=== PATIENT | male | born 1980 | race Caucasian/White ===

== ENCOUNTER → 2017-09-02 07:53 | Outpatient (CLI) | payer BC, SELFPAY ==
[2017-09-02 08:27] LABS: Absolute Lymphocyte Count 1.25 X10^3/ul (0.83-4.51); Absolute Neutrophil Count 3.2 X10^3/uL (2.0-7.7); Basophil# 0.02 X10^3/uL; Basophil% 0.4 % (0-1); Eosinophil# 0.16 X10^3/uL; Hematocrit 44.8 % (40-54); Hemoglobin 15.5 g/dl (13.0-16.5); Lymphocyte # 1.25 X10^3/ul (4.0); Lymphocyte % 23.6 % (19-41); Mean Corp Hgb Conc 34.6 g/gl (32-36); Mean Corpuscular Hgb 28.9 pg (27.0-32.0); Mean Corpuscular Volume 83.4 fL (80-94); Mean Platelet Vol. 10.6 fl (6.2-12.0); Monocyte# 0.63 X10^3/uL; Monocyte% 11.9 % (0-10); Neutrophil # 3.21 X10^3/uL (2.7-7.7); Neutrophil % 60.7 % (47-70); POSITIVE COUNT NO; POSITIVE DIFFERENTIAL NO; POSITIVE MORPHOLOGY NO; Platelet Count 226 K/mm3 (150-450); RBC Distribution Width CV 12.6 % (11.6-14.6); RBC Distribution Width SD 38.2 fl (35.1-43.9); Red Blood Count 5.37 M/mm3 (4.6-6.2); White Blood Count 5.3 K/mm3 (4.4-11.0)
[2017-09-02 08:57] LABS: Anion Gap 6 (5-15); BUN 18 mg/dL (7-18); BUN/Creat Ratio 15.7 RATIO (10-20); Calcium,Total 8.6 mg/dL (8.5-10.1); Chloride 105 mmol/L (98-107); Cholesterol 139 mg/dL (200); Creatinine, Serum 1.15 mg/dL (0.70-1.30); EST Glomerular Filtration Rate 76 mL/min (>60); Est Glom Filt Rate - Afr Amer 92 mL/min (>60); Glucose 110 mg/dL (74-106); High Density Lipoprotein 37 mg/dL; Potassium 4.2 mmol/L (3.5-5.1); Sodium Level 137 mmol/L (136-145); Triglycerides 142 mg/dL; Very Low Density Lipoprotein 28 mg/dL (5-40)
== END ==
PROVIDERS: Family Provider Family Medicine; PCP Family Medicine; Visit Provider Family Medicine
DX: I10 Essential (primary) hypertension (principal); E78.00 Pure hypercholesterolemia, unspecified
CPT/HCPCS: 36415; 80048; 80061; 85025

== ENCOUNTER → 2020-05-28 10:10 | Outpatient (CLI) | payer BC, SELFPAY ==
[2020-05-28 12:51] LABS: ALB/GLOB Ratio 1.3 RATIO (0.9-2.4); AST(SGOT) 14 U/L (15-37); Alanine Aminotransfer ALT/SGPT 34 U/L (16-61); Alkaline Phosphatase 56 U/L (45-117); Anion Gap 5 (5-15); BUN 18 mg/dL (7-18); BUN/Creat Ratio 16.4 RATIO (10-20); Calcium,Total 8.9 mg/dL (8.5-10.1); Chloride 105 mmol/L (98-107); Cholesterol 162 mg/dL (200); EST Glomerular Filtration Rate 79 mL/min (>60); Est Glom Filt Rate - Afr Amer 95 mL/min (>60); Glucose 102 mg/dL (74-106); High Density Lipoprotein 42 mg/dL; Potassium 4.1 mmol/L (3.5-5.1); Sodium Level 138 mmol/L (136-145); Triglycerides 124 mg/dL; Very Low Density Lipoprotein 25 mg/dL (5-40)
[2020-05-28 12:53] LABS: Hemoglobin A1c 5.2 % (3.8-5.6)
== END ==
PROVIDERS: PCP Family Medicine; Visit Provider Family Medicine
DX: Z00.00 Encounter for general adult medical examination without abnormal findings (principal); R73.01 Impaired fasting glucose
CPT/HCPCS: 36415; 80053; 80061; 83036

== ENCOUNTER 2020-07-08 15:44 | Outpatient (RCR) | payer BC, SELFPAY ==
[2020-07-09 13:41] VITALS: BMI 41.5
== END 2020-09-08 23:59 ==
LOC: IMMUN 15:44
PROVIDERS: PCP Family Medicine; Referring Provider Family Medicine; Visit Provider Family Medicine
DX: Z23 Encounter for immunization (principal)
CPT/HCPCS: 0001A; 0002A; 91300

== ENCOUNTER 2020-09-04 09:54 | Day surgery (SDC) | payer BC, SELFPAY ==
--- NOTE | 2020-09-04 | IMM_PTH ---
PATIENT: DEVORAH PRINCE LOC: [place] U#:[id number] AGE/SX: 40/M ROOM: RE09/04/[address]: Dr. Estevan Bagley MD : 1980 BED: DIS: 09/04/2020 SPEC #: [id number] RECD: 09/07/20 12:19 STATUS: DANIELLE REQ #: [id number] CHARLY: 09/04/20 00:[address]: Estevan Bagley DEPT: IMMUNOHISTOCHEMISTRY RECD BY: Mckenna Horn ENTERED: 09/07/20 12:21 SP TYPE: IMMUNO OTHR DR: Dr. Dada Anderson, DO Tissues: Forearm, NOS Procedures: Synapto (add) SMA (add) CALPONIN-1 (add) CD31 (add) CD34 (add) CD45 (add) CD56 (add) CHROMO (add) TIERRA (add) P53 (add) Vimentin (add) FACTOR VIII (add) NEUROFIL (add) Pankeratin (initial) S-100 (add) PHYSICIAN & INSTITUTION [address] [address] SPECIMEN INFORMATION: Tissue Source: Right dorsal radial mid forearm soft tissue mass Clinical Info: 2.5 cm painful soft tissue mass, dorsal radial aspect right mid forearm Specimen Number: [id number] CPT code: 66424, 18527 x14 METHODOLOGY: Deparaffinized sections of prefer/formalin-fixed tissue or PAP/DQ stained slides are incubated with monoclonal/polyclonal antibodies/oligonucleotide probes. Localization is made via biotin free immunoperoxidase method. Appropriate controls are performed and reacted as expected. Results on target cell population are indicated in the following table: RESULTS: ANTIBODY / CLONE RESULT AE1-3 (AE1/AE3/PCK26) negative CD45 (RP2/18) negative Vimentin (V9) positive CD31 ([place]/70A) positive Factor VIII (R Ag) positive CD34 (QBEnd-10) positive Actin (1A4) positive S-100 (4C4.9) negative TIERRA (E29) negative P53 (DO-7) negative CD56 (123C3.D5) negative Chromo (LK2H10) negative Synapto (polyclonal) negative Calponin-1 (EF095R) positive Neurofil (2F11) negative These tests were developed and their performance characteristics determined by [facility]. They may not have been cleared or approved by the U.S. Food and Drug Administration. The FDA has determined that such clearance or approval is not necessary. The above immunohistochemical/dualISH markers are ordered and reviewed by the Pathologist. INTERPRETATION: Soft tissue mass of mid right forearm, biopsy: Consistent with glomangioma/glomus tumor. AM:sharri 09/09/2020 Case has been reviewed in consultation with Dr. Ferrer who concurs with the above diagnosis. IDC:SJ
--- NOTE | 2020-09-04 10:01 | PCM.HP.BLA ---
History and Physical Date of Admission: 09/04/20 HISTORY OF PRESENT ILLNESS 40 year old man presents with a soft tissue mass dorsal radial aspect mid right forearm that has been increasing in size over the last several months. He also increasing pain when the mass is bumped. He denies fever. He denies trauma. He denies numbness in his fingers. He denies drainage. He denies recent infection. Patient is right hand dominant. He presents at this time for further evaluation and treatment. PAST MEDICAL HISTORY Mass of right forearm Frequent headaches High cholesterol High blood pressure PAST SURGICAL HISTORY nasal septoplasty placement of ear tubes tonsillectomy ALLERGIES No Known Allergies MEDICATIONS Simvastatin [Zocor] lisinopril-hydrochlorothiazide phentermine FAMILY HISTORY High cholesterol Hypertension Skin cancer SOCIAL HISTORY Smoking Status: Never smoker alcohol intake: current substance use type: does not use REVIEW OF SYSTEMS General - Denies fever, fatigue, and weight loss. Eyes - Denies cataracts and glaucoma. ENT - Denies nasal congestion and sore throat. Endocrine - Denies excessive thirst and urination. Skin - Denies skin cancer. Has enlarging painful soft tissue mass dorsal radial aspect mid right forearm. There is family history of skin cancer. Musculoskeletal - Denies joint pain, joint stiffness, weakness of muscles and joints, back pain, and arthritis. Neuro - Denies headaches. Cardiovascular - Denies chest pain, fatigue, and shortness of breath with exertion. Psych - Denies anxiety and depression. Respiratory - Denies chronic cough and shortness of breath. Gastrointestinal - Denies nausea, vomiting, diarrhea, and constipation. Hematologic - Denies abnormal bruising and bleeding. Genitourinary - Denies hematuria and urinary frequency. PHYSICAL EXAMINATION General - Alert and Oriented HEENT - PERRL. EOMI. Throat is clear. No suspicious lesions noted. Neck - Supple and nontender. No cervical adenopathy. No suspicious lesions noted. Lungs - Clear to auscultation. Heart - Regular rate and rhythm. Abdomen - Soft and nondistended. Extremities - FROM. No axillary adenopathy. Radial pulses are palpable. Patient is right hand dominant. On the dorsal radial aspect mid right forearm is a soft tissue mass. It is mobile. It is tender to palpation. No evidence of infection. Measures 2.5 cm. No sensory deficits noted in his fingers right hand. Fingers are warm with good capillary refill. Neuro - CN II-XII grossly intact. Psych - Normal mood and affect. ASSESSMENT 1 2.5 cm painful soft tissue mass dorsal radial aspect mid right forearm. 2. Family history of skin cancer. PLAN Patient has an enlarging soft tissue mass dorsal radial aspect mid right forearm with worsening painful symptomatology. Recommend excision of this painful soft tissue mass and send it to Pathology for analysis to rule out carcinoma. I doubt a drain will be necessary. It will depend on the size of the wound after excision. To minimize swelling postoperatively, will apply an hina wrap for compression. Surgery can be done under local anesthesia and IV sedation on an outpatient basis. Patient was informed of the risks and complications of the procedure including alternatives to surgery. These were discussed with the patient personally. Patient voices understanding and wishes to proceed. Some of the risks and complications were included in a form from the [place] [employer]. We discussed the current risks associated with COVID-19. While it is understood that there is a community spread of COVID-19, the risk of everardo COVID-19 while at [facility] ([facility]) is very low; however, the risk cannot be completely mitigated because of the community spread of the disease. We discussed in detail the risk of exposure to and/or potential harm posed by the COVID-19 virus with having a surgery/procedure at this time versus the risk of delaying the surgery/procedure. It is not possible to know either the risk of delaying the surgery or procedure or chance of getting an infection with perfect accuracy, but a joint decision was made to proceed at this time with the scheduled surgery/procedure as indicated on the consent form. Patient was notified that we will need to comply with any screening or testing [facility] wishes to perform or that surgery may be delayed for any positive results. Discussed with the patient that I was tested for COVID-19 on 10/03/19 which was negative and on 10/17/19 which was negative and on 10/31/19 which was negative and on 11/14/19 which was negative and on 11/28/19 which was negative and on 12/19/19 which was negative and on 01/09/20 which was negative and on 02/13/20 which was negative and on 03/05/20 which was negative and on 03/24/20 which was negative. ? My testing regimen at this time is to be COVID-19 tested every 2 weeks or so.? I received the COVID-19 vaccine (Moderna) on 04/01/20 and the second vaccine dose was received on 04/29/20.? When I was hospitalized on 06/01/20 I was tested for COVID-19 which was negative.? I was also? tested for COVID-19 on 06/16/20 which was negative and on 07/13/20 which was negative. Procedure Criteria Procedure Type:?Elective COVID Risk Discussion: The surgeon/proceduralist and patient have discussed in detail the risk of exposure to and/or potential harm posed by the COVID-19 virus with having a surgery/procedure at this time versus the risk of delaying the surgery/procedure.? It is not possible to know either the risk of delaying the surgery or procedure or chance of getting an infection with perfect accuracy, but a joint decision was made between the patient and the surgeon/proceduralist to proceed at this time with the scheduled surgery/procedure as indicated on the consent form.
[2020-09-04 10:35] VITALS: PULSE 77; RESP 18; TEMP 36.8; O2SAT 99; BMI 41.5
[2020-09-04] MEDS: Lactated Ringers 1,000 ML 100 ML IV (11:00)
[2020-09-04] MEDS: Cefazolin 2 GM in 0.9% Normal Saline 100 ML IV (11:22)
--- NOTE | 2020-09-04 11:30 | TISS_PTH ---
PATIENT: DEVORAH PRINCE LOC: [facility] [place] U#:[id number] AGE/SX: 40/M ROOM: RE09/04/[address]: Dr. Estevan Bagley MD : 1980 BED: DIS: 09/04/2020 SPEC #: [id number] RECD: 09/04/20 12:27 STATUS: DANIELLE RETrell #: [id number] CHARLY: 09/04/20 11:[address]: Estevan Bagley DEPT: SURGICAL PATHOLOGY RECD BY: Karen Crawford ENTERED: 09/04/20 12:57 SP TYPE: Tissue Bx OT DR: Dr. Dada Anderson DO Tissues: Skin of forearm, NOS Procedures: Elastin Stain (control) Trichrome (control) Special Stain Group II Surgery Specimen Level IV Iron Stain (control) HEADER OPERATION: Excision painful soft tissue mass dorsal radial mid forearm PRE-OP DIAGNOSIS: 2.5 cm painful soft tissue mass dorsal radial aspect right mid forearm TISSUE SUBMITTED: Right dorsal radial mid forearm soft tissue mass MICROSCOPIC DIAGNOSIS Soft tissue mass of mid right forearm, biopsy: Consistent with glomangioma/glomus tumor. AM:sharri 09/07/2020 COMMENT Immunohistochemistry ([id number]) supports the diagnosis. Case has been reviewed in consultation with Dr. Ferrer who concurs with the above diagnosis. IDC:SJ MICROSCOPIC DESCRIPTION Slides are reviewed. GROSS DESCRIPTION Received in fixative is one container labeled with the patient's name and designated right dorsal radial mid forearm soft tissue. The specimen consists of multiple irregular fragments of yellow-red soft tissue that in aggregate measure 2.5 x 2 x 0.2 cm. The specimen is totally submitted in one cassette. / AM:sharri 09/04/20 TC:3 CPT: 00073, 06517 x3
[2020-09-04] MEDS: Lidocaine 1% /Epi 1:100 (20ml) 20 ML Vial (11:42)
[2020-09-04] MEDS: Mupirocin Ointment 22gm Tube 1 APPLIC (12:04)
--- NOTE | 2020-09-04 12:08 | OP.PCM_ITS ---
Report of Operation Date of Procedure: 09/04/20 Pre-Operative Diagnosis: 1 2.5 cm painful soft tissue mass dorsal radial aspe ct mid right forearm. 2. Family history of skin cancer. Post-Operative Diagnosis: Same. Surgery/Procedure Performed:: Excision 2.5 cm painful soft tissue mass dorsal radial aspect mid right forearm with 1.5 cm layered closure. Description of Surgical Findings:: 40 year old man presents with a soft tissue mass dorsal radial aspect mid right forearm that has been increasing in size over the last several months. He also increasing pain when the mass is bumped. He denies fever. He denies trauma. He denies numbness in his fingers. He denies drainage. He denies recent infection. Patient is right hand dominant. Patient was informed of the risks and complications of the procedure including alternatives to surgery. These were discussed with the patient personally. Patient voices understanding and wishes to proceed. Some of the risks and complications were included in a form from the [place] [employer]. Surgeon: Estevan Bagley crepe maker: None Type of Anesthesia: Local MAC (Xylocaine with epinephrine and IV sedation.) Specimen's removed: Painful soft tissue mass dorsal radial aspect mid right forearm to Pathology. Drains: None. Estimated Blood Loss (mL): 5. Description of Procedure: Patient was taken to OR in supine position and was given IV sedation. The right forearm was prepped and draped in the usual fashion. SCD's were placed for DVT prophylaxis. Perioperative antibiotics were given intravenously. The painful soft tissue mass dorsal radial aspect mid right forearm was infiltrated with xylocaine and epinephrine. After waiting 5 minutes for the anesthetic to take effect, a longitudinal incision was made over the soft tissue mass down into the subcutaneous tissue. The mass was multilobular and extended down to the underlying muscle and fascia. It was not adherent to the muscle and fascia. The soft tissue mass was sent to Pathology for analysis to rule out carcinoma. The wound was irrigated with saline. Hemostasis was obtained with electrocautery. The wound was closed in a layered fashion with 4-0 Monocryl interrupted sutures for the deep dermis and subcutaneous tissue. The skin was approximated with 4-0 Nylon simple interrupted sutures. Antibiotic ointment was applied to the suture line followed by a gauze dressing and a compression hina wrap. The length of the layered closure was 1.5 cm. Patient tolerated the procedure well and was sent to PACU in satisfactory condition. Patient will be sent home on antibiotics and pain medication. He will keep his right arm elevated during the initial postoperative period. Patient will followup in a week for a wound check and for discussion of the pathology report. Sutures will be removed in 1-2 weeks. Grafts/Implants Used: None. Complications None. Admit VTE Documentation VTE Present on Admission: No VTE Mechan Device Prophylaxis: SCD's VTE Pharm Prophylaxis ordered?: No Addendum Addendum: Surgery Charges CPT - 98791 ICD-10 - R22.31, M79.631, Z80.8
[2020-09-04 12:10] VITALS: BP 117/73; BP 139/85; PULSE 90; RESP 16; TEMP 36.3; O2SAT 93
[2020-09-04 12:15] VITALS: BP 123/81; BP 139/85; PULSE 85; RESP 16; O2SAT 94
[2020-09-04 12:20] VITALS: BP 121/82; BP 139/85; PULSE 87; RESP 16; O2SAT 95
[2020-09-04 12:25] VITALS: BP 127/88; BP 139/85; PULSE 84; RESP 16; TEMP 36.3; O2SAT 93
--- NOTE | 2020-09-04 12:26 | PCM.DC ---
Discharge Instructions Diet Discharge Diet: No restrictions Activity Discharge Activity: Return to Normal Activity, May Shower (in two days.) and - (no heavy lifting with right upper extremity. elevate right arm.) Return to work on:: 09/07/20 (tentative) May shower in (days): 2 May resume sexual activity in: No Restrictions Weight Bearing Status: Weight bearing as tolerated Lifting Restrictions: 20 lbs. Keep extremity elevated above heart level: Right Arm Dressing / Incision Call your doctor if your incision/area has: Continuous Slow Oozing, Sudden Increased Bleeding, Increased Pain/ Swelling, Increased Redness, Foul Smelling Discharge and Swelling at the incision site Call your doctor if you observe: Fever of 101 or Higher, Coldness, Increased Pain, Shortness of breath, Chest pain, Calf discomfort and Uncontrolled pain Suture Line Care: Avoid Pulling/Pushing (after operative dresssing removed in two days, apply antibiotic ointment to suture line daily.) Change Dressing in: 2 days (daily dressing includes antibiotic ointment and gauze followed by hina wrap.) Remove Dressing in: 2 days (daily dressing includes antibiotic ointment and gauze followed by hina wrap.) Cleanse incision/area with: - (may get incision wet in the shower in two days.) Follow Up Care Please Follow Up With: Estevan Bagley MD When: one week. call [phone] for appt. Test Results: Test results from this visit will be discussed in further detail at your follow-up appointment, if applicable. Discharge Plan Admission Attending Provider: Estevan Bagley Primary Care Provider: Dada Anderson Discharge Orders/Prescriptions Prescriptions: New cefadroxil 500 mg capsule 500 mg PO BID Qty: 8 RF: 0 oxycodone-acetaminophen [Percocet] 5-325 mg tablet 1 tab PO Q6H PRN (Reason: pain (scale score 7-10)) 5 Days Qty: 20 RF: 0 Continued phentermine 37.5 mg tablet 27.5 mg PO DAILY RF: 0 simvastatin 40 MG tablet 40 mg PO QHS RF: 0 bdkrtihzvj-cmltpzuxhnazq-lasy 50-325-40 mg Capsule 1 cap PO Q4H PRN (Reason: MIGRAINES) RF: 0 losartan-hydrochlorothiazide 50-12.5 mg Tablet 1 tab PO DAILY RF: 0 Referrals / Follow Up: Dada Anderson, [Primary Care Provider] - Disposition Disposition (needs filled in before D/C Order can be placed): Home, self care
[2020-09-04 12:45] VITALS: BP 139/85
== END 2020-09-04 13:08 | disposition home or self-care (01) ==
LOC: SDC 09:57 → AC 09:58
PROVIDERS: PCP Family Medicine; Referring Provider Surgery; Visit Provider Surgery
PROC: (CPT 25075; principal; 2020-09-04 11:15)
DX: R22.31 Localized swelling, mass and lump, right upper limb (principal); M79.631 Pain in right forearm; Z80.8 Family history of malignant neoplasm of other organs or systems; I10 Essential (primary) hypertension; E78.00 Pure hypercholesterolemia, unspecified; Z79.899 Other long term (current) drug therapy
CPT/HCPCS: 25075; 88305; 88313; 88341; 88342; J7120; J2405

== ENCOUNTER → 2022-12-22 | Outpatient (CLI) | payer BC, SELFPAY ==
[2022-12-22 12:00] LABS: Absolute Neutrophil Count 3.8 X10^3/uL (2.0-7.7); Basophil# 0.04 X10^3/uL; Basophil% 0.7 % (0-1); Eosinophil# 0.12 X10^3/uL; Hematocrit 45.3 % (40-54); Hemoglobin 14.8 g/dL (13.0-16.5); Lymphocyte % 24.6 % (19-41); Mean Corp Hgb Conc 32.7 g/dL (32-36); Mean Corpuscular Hgb 28.5 pg (27.0-32.0); Mean Corpuscular Volume 87.1 fL (80-94); Mean Platelet Vol. 11.2 fl (6.2-12.0); Monocyte% 9.8 % (0-10); NRBC Flagged by Analyzer 0 % (0-5); Neutrophil # 3.82 X10^3/uL (2.7-7.7); Neutrophil % 62.6 % (47-70); Platelet Count 278 K/mm3 (150-450); RBC Distribution Width CV 12.3 % (11.6-14.6); White Blood Count 6.1 K/mm3 (4.4-11.0)
[2022-12-22 12:52] LABS: ALB/GLOB Ratio 1.3 RATIO (0.9-2.4); AST(SGOT) 15 U/L (15-37); Alanine Aminotransfer ALT/SGPT 44 U/L (16-61); Albumin, Serum 3.9 g/dL (3.2-5.0); Alkaline Phosphatase 56 U/L (45-117); Anion Gap 6 (5-15); BUN 19 mg/dL (7-18); BUN/Creat Ratio 18.4 RATIO (10-20); Calcium,Total 9.1 mg/dL (8.5-10.1); Chloride 108 mmol/L (98-107); Cholesterol 156 mg/dL (200); Creatinine, Serum 1.03 mg/dL (0.70-1.30); EST Glomerular Filtration Rate 84 mL/min (>60); Est Glom Filt Rate - Afr Amer 102 mL/min (>60); Glucose 115 mg/dL (74-106); High Density Lipoprotein 35 mg/dL; Potassium 4.1 mmol/L (3.5-5.1); Protein, Total 6.9 g/dL (6.4-8.2); Sodium Level 140 mmol/L (136-145); Triglycerides 175 mg/dL; Very Low Density Lipoprotein 35 mg/dL (5-40)
[2022-12-22 13:03] LABS: Hemoglobin A1c 5.5 % (3.8-5.6)
== END | disposition home or self-care (01) ==
LOC: BFHLAB 09:07
PROVIDERS: PCP Family Medicine; Referring Provider Family Medicine; Visit Provider Family Medicine
DX: Z00.00 Encounter for general adult medical examination without abnormal findings (principal); R73.01 Impaired fasting glucose
CPT/HCPCS: 36415; 80053; 80061; 83036; 85025

== ENCOUNTER → 2023-12-29 | Outpatient (CLI) | payer BC, SELFPAY ==
[2023-12-29 12:52] LABS: Absolute Lymphocyte Count 1.46 X10^3/uL (0.83-4.51); Absolute Neutrophil Count 4.1 X10^3/uL (2.0-7.7); Basophil# 0.03 X10^3/uL; Basophil% 0.5 % (0-1); Eosinophil# 0.13 X10^3/uL; Hemoglobin 14.8 g/dL (13.0-16.5); Lymphocyte # 1.46 X10^3/ul (0.83-4.51); Lymphocyte % 22.9 % (19-41); Mean Corp Hgb Conc 32.9 g/dL (32-36); Mean Corpuscular Hgb 28.5 pg (27.0-32.0); Mean Corpuscular Volume 86.5 fL (80-94); Monocyte# 0.64 X10^3/uL; NRBC Flagged by Analyzer 0 % (0-5); Neutrophil % 64.3 % (47-70); Platelet Count 263 K/mm3 (150-450); RBC Distribution Width CV 12.6 % (11.6-14.6); RBC Distribution Width SD 39.5 fl (35.1-43.9); White Blood Count 6.4 K/mm3 (4.4-11.0)
[2023-12-29 13:59] LABS: ALB/GLOB Ratio 1.5 RATIO (0.9-2.4); AST(SGOT) 11 U/L (15-37); Alanine Aminotransfer ALT/SGPT 37 U/L (16-61); Albumin, Serum 4.1 g/dL (3.2-5.0); Alkaline Phosphatase 53 U/L (45-117); Anion Gap 6 (5-15); BUN 21 mg/dL (7-18); BUN/Creat Ratio 18.9 RATIO (10-20); Calcium,Total 9.5 mg/dL (8.5-10.1); Chloride 106 mmol/L (98-107); Cholesterol 167 mg/dL (200); Creatinine, Serum 1.11 mg/dL (0.70-1.30); EST Glomerular Filtration Rate 77 mL/min (>60); Est Glom Filt Rate - Afr Amer 93 mL/min (>60); Globulin 2.8 g/dL (2.2-4.2); Glucose 114 mg/dL (74-106); High Density Lipoprotein 50 mg/dL; Potassium 4.4 mmol/L (3.5-5.1); Protein, Total 6.9 g/dL (6.4-8.2); Sodium Level 137 mmol/L (136-145); Triglycerides 110 mg/dL; Very Low Density Lipoprotein 22 mg/dL (5-40)
[2023-12-29 14:57] LABS: Hemoglobin A1c 5.5 % (3.8-5.6)
== END | disposition home or self-care (01) ==
PROVIDERS: PCP Family Medicine; Referring Provider Family Medicine; Visit Provider Family Medicine
DX: Z00.00 Encounter for general adult medical examination without abnormal findings (principal)
CPT/HCPCS: 36415; 80053; 80061; 83036; 85025

== ENCOUNTER 2024-02-09 13:00 | Outpatient (RCR) | payer BC, SELFPAY ==
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
--- NOTE | 2024-06-30 20:27 | HP.PTDCNRP_ITS ---
Patient Information Patient Information: DEVORAH PRINCE was seen in my office for initial evaluation on 01/12/24. The following Plan of Care was established for this patient: POC Established Initial Frequency: 1x/Week Initial Duration: 8-12 WKS Anticipated Interventions Patient/Client Instruction: Educate patient on: Condition, Plan of Care and Risk Factors For the Purpose of:: To improve self management Therapeutic Exercise to Include: Strength training, Endurance training, Body mechanics, Postural training, Flexibilty training, Active ROM and Scapular Strength/Stabilization For the Purpose of:: To decrease pain, To increase ROM, To improve muscle performance and motor function, To increase tolerance to activit y/condition/position, To improve ability of physical actions for home/community/work/leisure, To increase flexibility/ROM and To improve self management Manual Therapy Techniques to Include: Trigger point massage, Mobilization, Soft tissue mobilization and Other Comment: TRACTION For the Purpose of:: To decrease pain, To increase ROM, To improve nutrient delivery to tissue and To improve muscle performance and motor function Cryotherapy (ice pack, ice massage): Yes Thermo therapy (hot pack): Yes Ultrasound (thermal/non thermal): Yes Intermittent cervical traction: Yes For the Purpose of:: To decrease pain, To decrease swelling/inflammation and To improve nutrient delivery to tissue Last Seen Last Seen: This patient was last seen in our office 02/09/24. Pertinent comments regarding their Physical therapy will appear below: It has been my pleasure to see this patient for a total of 3 visits. This patient has not returned to Physical Therapy for more visits and is appropriate to return to MD for further follow-up as needed. At this point I will be discontinuing this patient from physical therapy. I would be happy to see this patient again in the future if found appropriate by the physician. Thank you! Melody Rich, PT, Cert MDT Balance/Gait/Functional tests Balance/Special Test Scores Oswestry Neck Score: 13
== END 2024-02-09 19:00 | disposition home or self-care (01) ==
LOC: PT 13:00
PROVIDERS: PCP Family Medicine; Referring Provider Family Medicine; Visit Provider Family Medicine
DX: M54.2 Cervicalgia (principal)
CPT/HCPCS: 97012; 97110; 97140; 97162; 97530

== ENCOUNTER → 2025-01-03 | Outpatient (CLI) | payer BC, SELFPAY ==
[2025-01-03 12:18] LABS: Hematocrit 43.1 % (40-54); Hemoglobin 14.6 g/dL (13.0-16.5); Immature Granulocytes Count 0.010 X10^3/uL (0.0-0.0); Mean Corp Hgb Conc 33.9 g/dL (32-36); Mean Corpuscular Volume 85.2 fL (80-94); Mean Platelet Vol. 11.0 fl (6.2-12.0); NRBC Flagged by Analyzer 0 % (0-5); Platelet Count 256 K/mm3 (150-450); RBC Distribution Width CV 12.3 % (11.6-14.6); RBC Distribution Width SD 38.1 fl (35.1-43.9); Red Blood Count 5.06 M/mm3 (4.6-6.2); White Blood Count 5.5 K/mm3 (4.4-11.0)
[2025-01-03 12:57] LABS: AST(SGOT) 19 U/L (<=37); Alanine Aminotransfer ALT/SGPT 34 U/L (<=46); Albumin, Serum 4.2 g/dL (3.5-5.0); Alkaline Phosphatase 50 U/L (40-129); Anion Gap 13 (5-15); BUN 15 mg/dL (4-19); BUN/Creat Ratio 14.1 RATIO (10-20); Calcium,Total 8.9 mg/dL (7.6-11.0); Carbon Dioxide 23.3 mmol/L (21.0-32.0); Chloride 103 mmol/L (98-108); Cholesterol 165 mg/dL (<=200); Globulin 1.6 g/dL (2.2-4.2); Glucose 106 mg/dL (70-99); Low Density Lipoprotein Calc. 102 mg/dL; Potassium 4.6 mmol/L (3.3-5.1); Triglycerides 88 mg/dL; Very Low Density Lipoprotein 18 mg/dL (5-40); cholesterol:hdl ratio screen 3.63
== END | disposition home or self-care (01) ==
LOC: MTLAB 09:42
PROVIDERS: PCP Family Medicine; Referring Provider Family Medicine; Visit Provider Family Medicine
DX: Z00.00 Encounter for general adult medical examination without abnormal findings (principal)
CPT/HCPCS: 36415; 80053; 80061; 83036; 85025